=== PATIENT | female | born 1955 | race Caucasian/White ===

== ENCOUNTER → 2016-11-19 | Outpatient (CLI) | payer OTHER ==
[~2016-11-19] MED LIST: HYDR-3580 PO; LOSA50TA PO; METR1GEL2 EX; TRAM50 PO; TYLE500T PO; Z.0.COMMODE-3:1; Z.0.CPM
[2016-11-19 22:22] LABS: HEMOGLOBIN A1a 1.1 %; HEMOGLOBIN A1b 1.7 %; HEMOGLOBIN Ao 83.9 %; HEMOGLOBIN LA1C 2.2 %; HEMOGLOBIN P3 5.7 %
== END ==
LOC: PLAB 11:57
PROVIDERS: ATTEND Internal Medicine
DX: R73.09 Other abnormal glucose (principal)
CPT/HCPCS: 82306; 83036